=== PATIENT | female | born 1995 | race Caucasian/White ===

== ENCOUNTER 2017-06-11 17:36 | Emergency (ER) | payer MEDICAID ==
[~2017-06-11] VITALS: Ht 160 cm; Wt 159.1 kg
[2017-06-11 17:52] VITALS: BP 175/112
[2017-06-11] MEDS ORDERED: IBUP-1984 PO (18:14)
== END 2017-06-11 18:35 | disposition home or self-care (01) ==
LOC: ER 17:36
DX: S93.602A Unspecified sprain of left foot, initial encounter (principal); F12.10 Cannabis abuse, uncomplicated; W10.9XXA Fall (on) (from) unspecified stairs and steps, initial encounter; Y93.89 Activity, other specified; Y92.89 Other specified places as the place of occurrence of the external cause; Y99.8 Other external cause status
CPT/HCPCS: 73610; 73630; 99284

== ENCOUNTER 2025-02-17 20:30 | Emergency (ER) | payer MEDICAID ==
[~2025-02-17] VITALS: Ht 160 cm; Wt 159.1 kg
[2025-02-17 20:36] VITALS: BP 165/92; PULSE 92; RESP 16; TEMP 97.8; O2SAT 99
[2025-02-17] MEDS ORDERED: AMOX-580 PO (21:23)
[2025-02-17] MEDS ORDERED: IBUP-1986 PO (21:23)
--- NOTE | 2025-02-17 21:23 | Physician Documentation ---
HPI ~ General Chief Complaint: Tooth Problem Stated Complaint: TEETH PAIN Time Seen by MD: 21:10 Primary Medical Doctor: Trinh Davila History of Present Illness HPI Comment This is a 29-year-old female with a history of several broken teeth and cavities who presents with one-week of increasing worsening tooth pain to several areas with left upper rear molar being most painful. Patient reports no difficulty breathing, difficulty swallowing, or a fever. Patient reports she does have a dentist appointment upcoming. Patient reports no other acute symptoms or concerns. Medication Reconciliation Allergies: Coded Allergies: No Known Allergies (Unverified , 06/22/24) Scheduled Amox Tr/Potassium Clavulanate 875/125 MG (Augmentin 875/125 MG), 1 TAB PO Q12H Ibuprofen (Ibuprofen), 1 TAB PO Q8H Past Medical History Past Medical History: Anxiety Past Surgical History: noncontributory Alcohol Use: None Drug Use: marijuana Lives In: Home Review of Systems ROS As stated above in the HPI, otherwise all systems are reviewed and negative. Physical Exam Vital Signs: Temperature: 97.8, Source: Temporal, Heart Rate: 92, Respiratory Rate: 16, BP: 165/92, Pulse Oximetry: 99, Weight: 159.100 Physical Exam VITALS: Reviewed and as above. GENERAL: Alert, nontoxic appearing, no apparent distress. HEENT: Generally poor dentition, several chipped teeth and dental caries, area of erythema at the base of left rear upper molar, small amount of purulent drainage from base of tooth, no fluctuance. No facial swelling, no submandibular swelling, no elevation of the tongue, uvula midline, no drooling Progress Results/Orders Results/Orders Vital Signs 02/17/25 20:36 Temp 97.8 Pulse 92 Resp 16 B/P (MAP) 165/92 Pulse Ox 99 Medical Decision Making Additional information obtaine: N/A Findings This well appearing 29-year-old female presented with dental pain to multiple teeth with the worst being left rear upper molar. Based on history and physical exam I have low clinical suspicion for peritonsillar abscess, uvulitis, deep tissue space infection of the head/neck, or impending airway compromise. There was no submandibular swelling or elevation of the tongue, the uvula was midline, patient is able to swallow fluids and secretion without difficulty, there is no increased work of breathing or noisy breathing. Based on presentation I am concerned for odontogenic infection and antibiotic treatment with Augmentin is indicated. Pain control with non-narcotic medications is appropriate at this time. Patient is otherwise well-appearing and appropriate for outpatient follow up. Patient is to follow up with a dentist as soon as possible. Patient has been provided home care instructions, return to care precautions, and follow up instructions which he verbalized understanding of. Differential Dx:Considerations: Include: Alveolar fracture, Alveolar osteitis, ANUG, Facial Cellulitis, Periapical abscess, Peridontal abscess, Pulpitis, Tooth avulsion, Tooth eruption, Tooth Fracture, Trigeminal neuralgia, Tooth subluxation Departure Time of Disposition: 21:23 Disposition: HOME / SELF CARE / HOMELESS Impression: Primary Impression: Toothache Condition: Improved Discharge Instructions: Dental Pain Additional Instructions: Please take the antibiotics as prescribed. Please use the ibuprofen as prescribed, you may add up to a 1000 mg of Tylenol up to 4 times a day for breakthrough pain. Follow up with a dentist as soon as possible. Please follow up with your primary care provider in the next few days. Please return to the emergency department for any new or worsening concerning symptoms. Referrals: NO PRIMARY CARE PROVIDER (PCP) Prescriptions Ibuprofen (Ibuprofen) 800 Mg Tablet 1 TAB PO Q8H for pain for 10 Days, #30 TAB 0 Refills Prov: LISA MAGALLANES 02/17/25 Amox Tr/Potassium Clavulanate 875/125 MG (Augmentin 875/125 MG) 875 Mg-125 Mg Tablet 1 TAB PO Q12H for 10 Days, #20 TAB Prov: LISA MAGALLANES 02/17/25 Education Educated: Patient Educated regarding: diagnosis, treatment, prognosis, need for follow up Signature Scribe Signature: No scribe Attestation: The note accurately reflects work and decisions made by me.ALBA Rodriguez 02/18/25 01:03 LISA MAGALLANES Feb 17, 2025 21:23
== END 2025-02-17 21:54 | disposition home or self-care (01) ==
LOC: ER 20:31
DX: K08.89 Other specified disorders of teeth and supporting structures (principal)
CPT/HCPCS: 99283